=== PATIENT | female | born 1970 | race Asian ===

== ENCOUNTER 2016-12-04 08:36 | Observation (INO) | payer MEDICAID ==
[2016-12-04] MEDS ORDERED: CLINDAMYCIN 600 MG/D5W RTU 600 MG/50 ML RTUPB IV ONE (09:06)
--- NOTE | 2016-12-04 09:08 | ER Document Report ---
ED Extremity Problem, Upper - General Chief Complaint: Arm Pain Stated Complaint: SKIN PROBLEM Time Seen by Provider: 12/04/16 09:05 Mode of Arrival: Ambulatory Information source: Patient Notes: Patient presents complaining of insect bite to her left forearm from 2 days ago. Patient states that area has been pruritic. Patient developed redness and swelling yesterday. Patient states swelling and redness increased today. Patient denies any fever. TRAVEL OUTSIDE OF THE [place] IN LAST 30 DAYS: No - HPI Patient complains to provider of: Left, Arm Onset: Other - 2 days ago Recent injury: No Quality of pain: Achy Pain Level: 4 Context: Insect bite Associated symptoms: denies: Dizziness, Nausea, Short of breath Exacerbated by: Movement Relieved by: Nothing Similar symptoms previously: No Recently seen / treated by doctor: No - Related Data Allergies/Adverse Reactions: No Known Allergies Allergy (Unverified 12/04/16 08:46) Home Medications: Current Home Medications No Home Medications 12/04/16 [History] Past Medical History - General Information source: Patient, Friend - Social History Smoking Status: Unknown if Ever Smoked Chew tobacco use (# tins/day): No Frequency of alcohol use: None Drug Abuse: None Occupation: food service clerk Lives with: Family Family History: Reviewed & Not Pertinent - Medical History Medical History: Negative Renal/ Medical History: Denies: Hx Peritoneal Dialysis Surgical Hx: Negative - Immunizations Hx Diphtheria, Pertussis, Tetanus Vaccination: No Review of Systems - Review of Systems Constitutional: No symptoms reported. denies: Fever, Recent illness EENT: No symptoms reported Cardiovascular: No symptoms reported Respiratory: No symptoms reported. denies: Cough, Short of breath Gastrointestinal: No symptoms reported. denies: Vomiting Genitourinary: No symptoms reported Female Genitourinary: No symptoms reported Musculoskeletal: Muscle pain Skin: Change in color, Lumps Hematologic/Lymphatic: No symptoms reported Neurological/Psychological: No symptoms reported Physical Exam - Vital signs Vitals: Temp Pulse Resp BP Pulse Ox 98.2 F 84 16 126/84 H 97 12/04/16 08:45 12/04/16 08:45 12/04/16 08:45 12/04/16 08:45 12/04/16 08:45 - General General appearance: Appears well, Alert In distress: None - Respiratory Respiratory status: No respiratory distress Chest status: Nontender Breath sounds: Normal. No: Rales, Rhonchi, Stridor, Wheezing Chest palpation: Normal - Cardiovascular Rhythm: Regular Heart sounds: S1 appreciated, S2 appreciated - Back Back: Normal - Extremities General upper extremity: Edema - 2+ edema left upper extremity, Normal ROM, Normal strength. No: Normal color - Erythema to dorsal aspect of left hand and forearm, Normal temperature - Warm to touch to left upper extremity General lower extremity: Normal inspection, Normal ROM - Neurological Neuro grossly intact: Yes Cognition: Normal [place] Coma Scale Eye Opening: Spontaneous [place] Coma Scale Verbal: Oriented [place] Coma Scale Motor: Obeys Commands Le Coma Scale Total: 15 - Psychological Associated symptoms: Normal affect, Normal mood - Skin Skin Temperature: Warm Skin Moisture: Dry Skin Color: Erythema Skin irregularity: Erythema - Erythema to dorsal aspect of left hand and forearm with lymphangitis extending to medial aspect of left upper extremity. Patient with bolus skin lesion measuring 3 cm diameter Course - Re-evaluation Re-evalutation: 12/04/16 10:[address] Bazan, Dr. Bazan to bedside for exam, recommends hospitalist be consulted for admission. Consulted with Dr. Cheema who states that [employer]EL[employer] [place] will be down to evaluate patient for likely medical bed - Vital Signs Vital signs: Temp Pulse Resp BP Pulse Ox 97.8 F 71 14 118/71 100 12/04/16 15:37 12/04/16 15:37 12/04/16 15:37 12/04/16 15:37 12/04/16 15:37 - Laboratory Result Diagrams: 12/04/16 09:28 12/04/16 09:28 Laboratory results interpreted by me: 12/04/16 09:28 WBC 11.3 H Seg Neutrophils % 81.3 H Lymphocytes % 10.9 L Absolute Neutrophils 9.2 H Labs- Entire Visit 12/04/16 12/04/16 12/04/16 09:28 09:28 09:28 WBC 11.3 H RBC 4.89 Hgb 14.5 Hct 43.2 MCV 88 MCH 29.7 MCHC 33.6 RDW 13.1 Plt Count 260 Seg Neutrophils % 81.3 H Lymphocytes % 10.9 L Monocytes % 5.5 Eosinophils % 2.0 Basophils % 0.3 Absolute Neutrophils 9.2 H Absolute Lymphocytes 1.2 Absolute Monocytes 0.6 Absolute Eosinophils 0.2 Absolute Basophils 0.0 Sodium 139.5 Potassium 3.8 Chloride 102 Carbon Dioxide 29 Anion Gap 9 BUN 14 Creatinine 0.52 Est GFR ( Amer) > 60 Est GFR (Non-Af Amer) > 60 Glucose 92 Calcium 9.4 Total Bilirubin 0.9 Direct Bilirubin 0.2 Indirect Bilirubin Not Reportable Neonat Total Bilirubin Not Reportable AST 24 ALT 35 Alkaline Phosphatase 61 Total Protein 7.4 Albumin 4.1 Serum HCG, Qual NEGATIVE Discharge - Discharge Clinical Impression: Lymphangitis Cellulitis Qualifiers: Site of cellulitis: extremity Site of cellulitis of extremity: upper extremity Laterality: left Qualified Code(s): L03.114 - Cellulitis of left upper limb Condition: Stable Disposition: ADMITTED INPATIENT Admitting Provider: Hospitalist Unit Admitted: Medical Floor
[2016-12-04 09:46] LABS: ABSOLUTE EOSINOPHILS # (AUTO) 0.2 10^3/uL (0.0-0.6); ABSOLUTE LYMPHOCYTES (AUTO) 1.2 10^3/uL (0.5-4.7); ABSOLUTE MONOCYTES (AUTO) 0.6 10^3/uL (0.1-1.4); ABSOLUTE NEUT (AUTO) 9.2 10^3/uL (1.7-8.2); BASOPHILS % (AUTO) 0.3 % (0-2); HEMATOCRIT 43.2 % (36.0-47.0); HEMOGLOBIN 14.5 g/dL (12.0-15.5); HGB HCT DIFFERENCE 0.3; LYMPHOCYTES % (AUTO) 10.9 % (13-45); MEAN CORPUSCULAR HEMOGLOBIN 29.7 pg (27.0-33.4); MEAN CORPUSCULAR HGB CONC 33.6 g/dL (32.0-36.0); MEAN CORPUSCULAR VOLUME 88 fl (80-97); MONOCYTES % (AUTO) 5.5 % (3-13); RED BLOOD COUNT 4.89 10^6/uL (3.72-5.28); RED CELL DISTRIBUTION WIDTH 13.1 % (11.5-14.0); SEGMENTED NEUTROPHILS % (AUTO) 81.3 % (42-78); WHITE BLOOD COUNT 11.3 10^3/uL (4.0-10.5)
[2016-12-04 10:04] LABS: ALANINE AMINOTRANSFERASE 35 U/L (9-52); ALBUMIN 4.1 g/dL (3.5-5.0); ALKALINE PHOSPHATASE 61 U/L (38-126); ANION GAP 9 (5-19); ASPARTATE AMINO TRANSFERASE 24 U/L (14-36); BILIRUBIN,DIRECT 0.2 mg/dL (0.0-0.4); BILIRUBIN,TOTAL 0.9 mg/dL (0.2-1.3); BLOOD UREA NITROGEN 14 mg/dL (7-20); CALCIUM 9.4 mg/dL (8.4-10.2); CARBON DIOXIDE 29 mmol/L (22-30); CHLORIDE 102 mmol/L (98-107); CREATININE RESULT 0.52 mg/dL (0.52-1.25); GLUCOSE 92 mg/dL (75-110); POTASSIUM 3.8 mmol/L (3.6-5.0); SODIUM 139.5 mmol/L (137-145); TOTAL PROTEIN 7.4 g/dL (6.3-8.2)
[2016-12-04] MEDS ORDERED: DIPH/PERTUSS(ACELL)/TETANUS VAC/PF 0.5 ML SYR (>=10YO) IM ONE (10:57)
[2016-12-04] MEDS ORDERED: OXYCODONE-ACETAMINOPHEN 5-325 MG TABLET PO ONE (10:57)
[2016-12-04] MEDS ORDERED: ONDANSETRON HCL INJ/PF 4 MG/2 ML SDV IV PRN (11:46)
[2016-12-04] MEDS ORDERED: ACETAMINOPHEN 325 MG TABLET PO PRN (11:46)
[2016-12-04] MEDS ORDERED: DIPHENHYDRAMINE HCL 25 MG CAPSULE PO PRN (11:59)
--- NOTE | 2016-12-04 12:20 | PDOC H&P ---
History of Present Illness Admission Date/PCP: 12/04/16 11:06 Patient complains of: Left arm redness and itching " bug bite.." History of Present Illness: HARRY MARIN is a 46 year old female who is a Mandarin female, who speaks no Tajik , history is obtained from her son as hearing healthcare practitioner. She is complaining of left forearm redness, itching that is spreading up her arm. There is a large bulla in the mid left forearm. She states it is very pruritic. Patient claims that it began Wednesday with an insect bite. She has had similar reactions in the past. Her son states this is the most severe reaction that she has had. Mild lymphangitic streaking in the upper left arm. She has not taken any over-the- counter medicine or use any topical creams. She has no other health history according to her son. Past Medical History Medical History: None Cardiac Medical History: Reports: None Pulmonary Medical History: Reports: None EENT Medical History: Reports: None Neurological Medical History: Reports: None Endocrine Medical History: Reports: None Renal/ Medical History: Reports: None Malignancy Medical History: Reports: None GI Medical History: Reports: None Musculoskeltal Medical History: Reports: None Psychiatric Medical History: Reports: None Traumatic Medical History: Reports: None Hematology: Reports: None Infectious Medical History: Reports: None Past Surgical History Past Surgical History: Reports: None Social History Information Source: Patient, Relative Lives with: Family Smoking Status: Never Smoker Frequency of Alcohol Use: Rare Hx Recreational Drug Use: No Drugs: None Hx Prescription Drug Abuse: No - Advance Directive Resuscitation Status: Full Code Family History Family History: None Parental Family History Reviewed: Yes Children Family History Reviewed: Yes Sibling(s) Family History Reviewed.: Yes Medication/Allergy Allergies/Adverse Reactions: No Known Allergies Allergy (Unverified 12/04/16 08:46) Review of Systems Constitutional: ABSENT: chills, fever(s), headache(s), weight gain, weight loss Eyes: ABSENT: visual disturbances Ears: ABSENT: hearing changes Cardiovascular: ABSENT: chest pain, dyspnea on exertion, edema, orthropnea, palpitations Respiratory: ABSENT: cough, hemoptysis Genitourinary: ABSENT: dysuria, hematuria Musculoskeletal: ABSENT: joint swelling Integumentary: ABSENT: rash, wounds Neurological: ABSENT: abnormal gait, abnormal speech, confusion, dizziness, focal weakness, syncope Psychiatric: ABSENT: anxiety, depression, homidical ideation, suicidal ideation Endocrine: ABSENT: cold intolerance, heat intolerance, polydipsia, polyuria Hematologic/Lymphatic: PRESENT: as per HPI Allergic/Immunologic: PRESENT: other Physical Exam Vital Signs: Temp Pulse Resp BP Pulse Ox 98.2 F 84 16 126/84 H 97 12/04/16 08:45 12/04/16 08:45 12/04/16 08:45 12/04/16 08:45 12/04/16 08:45 General appearance: PRESENT: no acute distress, well-developed, well-nourished Head exam: PRESENT: atraumatic, normocephalic Eye exam: PRESENT: conjunctival injection Ear exam: PRESENT: normal external ear exam Mouth exam: PRESENT: moist, tongue midline Neck exam: ABSENT: carotid bruit, JVD, lymphadenopathy, thyromegaly Respiratory exam: PRESENT: clear to auscultation john. ABSENT: rales, rhonchi, wheezes Cardiovascular exam: PRESENT: RRR. ABSENT: diastolic murmur, rubs, systolic murmur Pulses: PRESENT: normal dorsalis pedis pul Vascular exam: PRESENT: normal capillary refill GI/Abdominal exam: PRESENT: normal bowel sounds, soft. ABSENT: distended, guarding, mass, organolmegaly, rebound, tenderness Rectal exam: PRESENT: deferred Extremities exam: PRESENT: full ROM. ABSENT: calf tenderness, clubbing, pedal edema Musculoskeletal exam: PRESENT: ambulatory Neurological exam: PRESENT: alert, awake, oriented to person, oriented to place , oriented to time, oriented to situation, CN II-XII grossly intact. ABSENT: motor sensory deficit Psychiatric exam: PRESENT: appropriate affect, normal mood. ABSENT: homicidal ideation, suicidal ideation Skin exam: PRESENT: erythema, rash, warm, other - 3 cm bulla in mid forearm Assessment & Plan - Diagnosis (1) Cellulitis Qualifiers: Site of cellulitis: extremity Site of cellulitis of extremity: upper extremity Laterality: left Qualified Code(s): L03.114 - Cellulitis of left upper limb Plan: Will treat with (2) Lymphangitis Is this a current diagnosis for this admission?: Yes - Time Time Spent: 50 to 70 Minutes Critical Time spent with patient: 35 or more minutes Medications reviewed and adjusted accordingly: Yes Anticipated discharge: Home Within: within 48 hours
[2016-12-04] MEDS ORDERED: CLINDAMYCIN 600 MG/D5W RTU 600 MG/50 ML RTUPB IV SCH (14:00)
[2016-12-04] MEDS: CLINDAMYCIN 600 MG/D5W RTU 600 MG/50 ML RTUPB IV SCH (19:04)
[2016-12-04] MEDS: SILVER SULFADIAZINE 1% CREAM 50 GM TP SCH (19:04)
[2016-12-04] MEDS: FAMOTIDINE 20 MG TABLET PO SCH (22:09)
[2016-12-04] MEDS: METHYLPREDNISOLONE INJ 40 MG/1 ML SDV IV SCH (22:09)
[2016-12-05] MEDS: CLINDAMYCIN 600 MG/D5W RTU 600 MG/50 ML RTUPB IV SCH ×2 (02:51→11:19)
[2016-12-05 06:48] LABS: ABSOLUTE LYMPHOCYTES (AUTO) 0.8 10^3/uL (0.5-4.7); ABSOLUTE MONOCYTES (AUTO) 0.1 10^3/uL (0.1-1.4); ABSOLUTE NEUT (AUTO) 11.2 10^3/uL (1.7-8.2); BASOPHILS % (AUTO) 0.1 % (0-2); EOSINOPHILS % (AUTO) 0.1 % (0-6); HEMATOCRIT 41.9 % (36.0-47.0); HEMOGLOBIN 14.1 g/dL (12.0-15.5); HGB HCT DIFFERENCE 0.4; LYMPHOCYTES % (AUTO) 6.3 % (13-45); MEAN CORPUSCULAR HEMOGLOBIN 29.6 pg (27.0-33.4); MEAN CORPUSCULAR HGB CONC 33.7 g/dL (32.0-36.0); MEAN CORPUSCULAR VOLUME 88 fl (80-97); MONOCYTES % (AUTO) 0.8 % (3-13); RED BLOOD COUNT 4.78 10^6/uL (3.72-5.28); RED CELL DISTRIBUTION WIDTH 13.4 % (11.5-14.0); SEGMENTED NEUTROPHILS % (AUTO) 92.7 % (42-78); WHITE BLOOD COUNT 12.1 10^3/uL (4.0-10.5)
[2016-12-05 07:09] LABS: ANION GAP 10 (5-19); BLOOD UREA NITROGEN 11 mg/dL (7-20); CALCIUM 9.5 mg/dL (8.4-10.2); CARBON DIOXIDE 22 mmol/L (22-30); CHLORIDE 104 mmol/L (98-107); CREATININE RESULT 0.52 mg/dL (0.52-1.25); GLUCOSE 152 mg/dL (75-110); POTASSIUM 4.3 mmol/L (3.6-5.0); SODIUM 135.9 mmol/L (137-145)
[2016-12-05] MEDS ORDERED: TRIAMCINOLONE ACETONIDE 0.1% OINT 15 GM TOP PRN (09:50)
[2016-12-05] MEDS ORDERED: DOCUSATE SODIUM 100 MG/10 ML UDC PO SCH (10:00)
[2016-12-05] MEDS ORDERED: DOCUSATE SODIUM 100 MG CAPSULE PO SCH (10:00)
--- NOTE | 2016-12-05 10:16 | PDOC DISCHARGE SUMMARY ---
General - Admit/Disc Date/PCP Admission Date/Primary Care Provider: 12/04/16 11:47 Discharge Date: 12/05/16 - Discharge Diagnosis (1) Cellulitis Is this a current diagnosis for this admission?: Yes Summary: Much improved from yesterday. Will continue Bactrim DS bid for the next 7 days. (2) Lymphangitis Is this a current diagnosis for this admission?: Yes (3) Insect bite of forearm, left, infected Is this a current diagnosis for this admission?: Yes Summary: Silvadene cream and prednisone bid for the next 5 days - Additional Information Resuscitation Status: Full Code Home Medications: Acetaminophen [Tylenol 325 mg Tablet] 650 mg PO Q4HP PRN tablet 12/05/16 Diphenhydramine HCl [Benadryl 25 mg Capsule] 25 mg PO Q8HP PRN capsule Prednisone [Deltasone 20 mg Tablet] 20 mg PO BID #10 tablet 12/05/16 Silver Sulfadiazine [Silvadene 1% Cream 50 gm] 1 applic TP BID tube 12/05/16 Sulfamethoxazole/Trimethoprim [Bactrim Ds Tablet] 1 each PO BID #14 tablet 12/05 Triamcinolone Acetonide [Aristocort 0.1% Ointment] 1 applic TOP TIDP PRN tube 12/05/16 History of Present Illness Patient complains of: Left arm redness, swelling and blister after an insect bite History of Present Illness: HARRY MARIN is a 46 year old female who is a Mandarin female, who speaks no Bahraini , history is obtained from her son as inspector general. She is complaining of left forearm redness, itching that is spreading up her arm. There is a large bulla in the mid left forearm. She states it is very pruritic. Patient claims that it began Wednesday with an insect bite. She has had similar reactions in the past. Her son states this is the most severe reaction that she has had. Mild lymphangitic streaking in the upper left arm. She has not taken any over-the- counter medicine or use any topical creams. She has no other health history according to her son. Hospital Course Hospital Course: Patient was admitted to medical floor on observation overnight. She was started on IV broad spectrum antibiotics after blood cultures were obtained. Today the swelling and redness has improved greatly, it is almost gone. She still has a 2 cm bulla on the left forearm. She has an area of redness on her right chin that is pruritic. She has no other complaints Physical Exam Vital Signs: Temp Pulse Resp BP Pulse Ox 97.5 F 69 18 103/70 99 12/05/16 07:31 12/05/16 07:31 12/05/16 07:31 12/05/16 07:31 12/05/16 07:31 Intake & Output 12/04/16 12/05/16 12/06/16 06:59 06:59 06:59 Intake Total 480 Balance 480 Weight 46.8 kg General appearance: PRESENT: no acute distress, well-developed, well-nourished Head exam: PRESENT: atraumatic, normocephalic Eye exam: PRESENT: conjunctiva pink, EOMI, PERRLA. ABSENT: scleral icterus Ear exam: PRESENT: normal external ear exam Mouth exam: PRESENT: moist, tongue midline Neck exam: ABSENT: carotid bruit, JVD, lymphadenopathy, thyromegaly Respiratory exam: PRESENT: clear to auscultation john. ABSENT: rales, rhonchi, wheezes Cardiovascular exam: PRESENT: RRR. ABSENT: diastolic murmur, rubs, systolic murmur Pulses: PRESENT: normal dorsalis pedis pul Vascular exam: PRESENT: normal capillary refill GI/Abdominal exam: PRESENT: ascites Rectal exam: PRESENT: deferred Extremities exam: PRESENT: full ROM. ABSENT: calf tenderness, clubbing, pedal edema Musculoskeletal exam: PRESENT: ambulatory, full ROM, tenderness - left forearm bulla Neurological exam: PRESENT: alert, awake, oriented to person, oriented to place , oriented to time, oriented to situation, CN II-XII grossly intact. ABSENT: motor sensory deficit Psychiatric exam: PRESENT: appropriate affect, normal mood. ABSENT: homicidal ideation, suicidal ideation Skin exam: PRESENT: dry - red papular area approx 2 cm on right chin,, erythema , rash, warm, other Results Laboratory Results: 12/05/16 05:24 12/05/16 05:24 12/05/16 12/05/16 05:24 05:24 WBC 12.1 H RBC 4.78 Hgb 14.1 Hct 41.9 MCV 88 MCH 29.6 MCHC 33.7 RDW 13.4 Plt Count 269 Seg Neutrophils % 92.7 H Lymphocytes % 6.3 L Monocytes % 0.8 L Eosinophils % 0.1 Basophils % 0.1 Absolute Neutrophils 11.2 H Absolute Lymphocytes 0.8 Absolute Monocytes 0.1 Absolute Eosinophils 0.0 Absolute Basophils 0.0 Sodium 135.9 L Potassium 4.3 Chloride 104 Carbon Dioxide 22 Anion Gap 10 BUN 11 Creatinine 0.52 Est GFR ( Amer) > 60 Est GFR (Non-Af Amer) > 60 Glucose 152 H Calcium 9.5 Qualifiers [place] BEING DISCHARGED WITH ANY OF THE FOLLOWING DIAGNOSIS?: No Plan Discharge Plan: Home with son Time Spent: Less than 30 Minutes
[2016-12-05] MEDS ORDERED: TRIAMCINOLONE ACETONIDE 0.1% CREAM 15 GM TOP ONE (11:00)
[2016-12-05] MEDS: METHYLPREDNISOLONE INJ 40 MG/1 ML SDV IV SCH (11:09)
[2016-12-05] MEDS: FAMOTIDINE 20 MG TABLET PO SCH (11:19)
[2016-12-05] MEDS: SILVER SULFADIAZINE 1% CREAM 50 GM TP SCH (11:20)
[2016-12-05 12:27] VITALS: BP 124/71
== END 2016-12-05 12:35 | disposition home or self-care (01) ==
LOC: ER 08:36 → UNDOADMOB 11:06 → EH 11:06 → 4S 13:30 → 5 17:43
PROVIDERS: ADMIT Family Medicine; ATTEND Family Medicine
PROC: 3E0234Z Introduction of Serum, Toxoid and Vaccine into Muscle, Percutaneous Approach (ICD-10-PCS; principal; 2016-12-04)
DX: L03.114 Cellulitis of left upper limb (principal); I89.1 Lymphangitis; S50.862A Insect bite (nonvenomous) of left forearm, initial encounter; W57.XXXA Bitten or stung by nonvenomous insect and other nonvenomous arthropods, initial encounter; Z79.899 Other long term (current) drug therapy
CPT/HCPCS: 99284; 96365; 36415 ×2; 87040; 84703; 85025 ×2; 80048; 80053; 90715; G0378 ×3; J2920 ×2; J3490 ×2